=== PATIENT | male | born 1955 | race Two or more races ===

== ENCOUNTER 2017-07-30 12:24 | Day surgery (SDC) | payer OTHER ==
[2017-07-30] MEDS ORDERED: FENTAnyl 50 MCG/ML VIAL (15:33)
[2017-07-30] MEDS ORDERED: MIDAZOLAM 1 MG/ML 2 ML INJ (15:33)
== END 2017-07-30 17:09 | disposition home or self-care (01) ==
LOC: GIL 12:24
DX: Z12.11 Encounter for screening for malignant neoplasm of colon (principal); E78.5 Hyperlipidemia, unspecified; E11.9 Type 2 diabetes mellitus without complications
CPT/HCPCS: 45378; 82962

== ENCOUNTER 2018-01-18 13:47 | Emergency (ER) | payer OTHER ==
[2018-01-18] MEDS: ONDANSETRON (ODT) 4 MG TAB ODT (14:55)
[2018-01-18] MEDS: HYDROCODONE/APAP (5/325) TAB PO (14:55)
== END 2018-01-18 14:56 | disposition home or self-care (01) ==
LOC: FTE 13:47
DX: H92.01 Otalgia, right ear (principal); Z79.82 Long term (current) use of aspirin; Z79.84 Long term (current) use of oral hypoglycemic drugs
CPT/HCPCS: 99283; Z7502